=== PATIENT | male | born 1975 | race Caucasian/White ===

== ENCOUNTER 2016-11-06 19:31 | Emergency (ER) | payer OTHER ==
[2016-11-06] MEDS ORDERED: PROPARACAINE HCL 0.5% 300 GTTS/BOT SOLN.DROP ONE (19:35)
[2016-11-06] MEDS ORDERED: TETANUS,DIPHTHERIA TOXOID SYRINGE IM V ONE (19:55)
== END 2016-11-06 20:13 | disposition home or self-care (01) ==
LOC: ED 19:31
DX: S05.01XA Injury of conjunctiva and corneal abrasion without foreign body, right eye, initial encounter (principal); Z23 Encounter for immunization; W20.8XXA Other cause of strike by thrown, projected or falling object, initial encounter; Y93.H9 Activity, other involving exterior property and land maintenance, building and construction; Y92.008 Other place in unspecified non-institutional (private) residence as the place of occurrence of the external cause
CPT/HCPCS: 90714; 90471; 99283 ×2; A9270